=== PATIENT | female | born 1995 | race Two or more races ===

== ENCOUNTER 2017-07-17 18:56 | Emergency (ER) | payer OTHER ==
[2017-07-17 19:07] VITALS: RESP 16; TEMP 98.4
[2017-07-17 19:20] LABS: COLOR YELLOW; LEUKOCYTE ESTERASE,URINE 2+ (NEGATIVE); NITRITE,URINE NEGATIVE (NEGATIVE); PH,URINE 6.5 (5.0-7.5)
--- NOTE | 2017-07-17 19:25 | EDPHY ---
H & P Time Seen by Provider: 07/17/17 19:04 HPI/ROS: This patient reports dysuria that started today associated with urinary frequency, urgency and hematuria. She has mild low back pain as well but she attributes that to chronic low back pain from scoliosis. She notes no exacerbating factors for symptoms. Her last menstrual period was 6 weeks ago but she has irregular menses in terms of timing due to IUD. The symptoms are similar to prior UTI. She arrives here with her boyfriend by private vehicle for evaluation. ROS: No high fevers or chills though she has does have some low-grade subjective fevers. GI: No nausea vomiting : No significant vaginal discharge. 5 point ROS is otherwise negative Past Medical/Surgical History: , scoliosis, otherwise healthy Smoking Status: Never smoked Physical Exam: Physical Exam Vital signs are normal. General: No acute distress Eyes: Pupils equal and react to light. Extraocular motions are intact. Lungs: No respiratory distress. Cardiac: Brisk capillary refill is intact throughout. Abdomen: Soft, minimal suprapubic tenderness with no guarding or rebound. Back: No CVA tenderness. Scoliosis. Skin: No rash or pallor. Neuro: Alert with no sensorimotor deficits appreciated. Initial differential diagnosis: Cystitis, , interstitial cystitis Constitutional: Initial Vital Signs Temperature (C) 36.9 C 07/17/17 19:02 Heart Rate 66 07/17/17 19:02 Respiratory Rate 16 07/17/17 19:02 Blood Pressure 120/70 07/17/17 19:02 O2 Sat (%) 99 07/17/17 19:02 O2 Delivery Mode Room Air Allergies/Adverse Reactions: amoxicillin [From Augmentin] Allergy (Intermediate, Verified 07/17/17 19:01) Hives clavulanic acid [From Augmentin] Allergy (Intermediate, Verified 07/17/17 19:01) Hives Home Medications: Medication Instructions Recorded Cephalexin [Keflex (*)] 500 mg PO TID #21 cap 07/17/17 Phenazopyridine HCl [Pyridium 200 mg PO TID PRN #6 tab 07/17/17 200mg (RX)] Prozac 10 MG (*) 07/17/17 Synthroid 07/17/17 Vyvanse 07/17/17 MDM/Departure - [facility] Course/Re-evaluation: Keflex, peridium p. o.. I discussed the urinalysis result and the plan for her hemorrhagic cystitis. Discussion: No clinical evidence to suggest pyelonephritis or other complicating factors. We ruled out with a negative urine test. The patient had a mild Augmentin allergy consisting of rash. I think the she safe to start on Keflex. - Depart Disposition: Home, Routine, Self-Care Clinical Impression: Hemorrhagic cystitis Condition: Good Instructions: Cephalexin (By mouth), Urinary Tract Infection in Women (ED) Additional Instructions: Diagnosis: Hemorrhagic cystitis Plan: Drink plenty fluids Keflex antibiotic Pyridium Return for any significant worsening despite treatment plan Prescriptions: Cephalexin [Keflex (*)] 500 mg PO TID #21 cap Phenazopyridine HCl [Pyridium 200mg (RX)] 200 mg PO TID PRN #6 tab PRN Reason: dysuria Referrals: NONE *PRIMARY CARE P,. [Primary Care Provider] - As per Instructions
[2017-07-17 19:37] LABS: RBC,URINE >182 /hpf (0-3)
[2017-07-17 19:38] LABS: BACTERIA 1+ /hpf (NONE SEEN)
[2017-07-17] MEDS ORDERED: CEPHALEXIN 500 MG CAP PO ONE (19:43)
[2017-07-17] MEDS ORDERED: PHENAZOPYRIDINE HCL 200 MG TAB PO ONE (19:43)
[2017-07-17 19:59] VITALS: BP 117/70; PULSE 60; O2SAT 98
== END 2017-07-17 19:57 | disposition home or self-care (01) ==
LOC: CED 18:56
DX: N30.91 Cystitis, unspecified with hematuria (principal)
CPT/HCPCS: 81003-PO; 81015-PO; 81025-PO

== ENCOUNTER 2017-08-10 07:36 | Emergency (ER) | payer OTHER ==
--- NOTE | 2017-08-10 07:55 | EDPHY ---
H & P Time Seen by Provider: 08/10/17 07:43 HPI/ROS: HPI Blood in urine. 22-year-old female by private vehicle with and boyfriend. Patient was seen on July [address] Joseph Capone at the [facility] emergency department with complaint of hematuria and burning with urination. She was initially prescribed Keflex. Her urine culture grew out Gardnerella vaginalis. She was then discontinued on Keflex and started on Flagyl 500 mg twice daily for [address] Patrick Frazier. She reports that she felt better for a week. She reports that this morning she woke up again with gross hematuria and burning with urination. She reports her last menstrual period was about 2 months ago. She has an IUD and her menses are irregular and consistent of just spotting because of this. She denies any back pain. She has not had a fever. ROS: Constitutional: No fever, no chills. No weakness. Gastrointestinal: No abdominal pain, no vomiting, no diarrhea. Genitourinary: As above. No vaginal bleeding. Musculoskeletal: No back pain. No neck pain. No myalgias or arthralgias. Skin: No rashes. Neurological: No headache. No focal weakness or altered sensation. Past medical history: Hypothyroid, anxiety, depression, ADD, lipoma of the breast. Primary care physician is in [place] in [place]. Social history: Nonsmoker. No alcohol. Here with and boyfriend. Physical Exam: General Appearance: Alert, no distress. This patient is responding to questions appropriately and in full sentences. This patient appears well- hydrated and well-nourished. Eyes: Pupils equal and round no pallor or injection. No lid edema, erythema or injection. Gastrointestinal: Abdomen is soft and nontender, no masses, bowel sounds normal. No focal tenderness at McBurney's point. No Alexander sign. Pelvic exam: Speculum used with good light source. The cervix was well visualized. No bleeding from the cervical os which is closed. No vaginal wall lesions. No blood pooling in the vaginal vault. Neurological: Motor sensory function is grossly intact. Cranial nerves are normal. Gait is normal. Skin: Warm and dry, no rashes. Musculoskeletal: No CVA tenderness bilaterally. Extremities are symmetrical. All joints range without pain or impingement. Psychiatric: No agitation. No depression. Database: EKG: Imaging: Procedures: Emergency department course: Medical records reviewed from her emergency department visit to the [facility] on July 17. Her urine culture results were reviewed which grew out Gardnerella vaginalis. Urinalysis obtained. 8:45 a.m., patient re-evaluated. She is resting comfortably at this time. Results of her urinalysis discussed. I explained that the urine culture would be available in a day or 2. Patient tells me that every time she urinates she has burning on urination. 9:05 a.m., spoke with infectious disease specialist Dr. Dain Abbott. Case discussed in detail with him. He does not feel that this represents an infectious etiology. He is concerned about nephritic syndrome or another non infectious etiology. Blood work on the patient is pending to evaluate her renal function. 9:50 a.m., patient re-evaluated. Resting comfortably at this time. Discussed results of blood work. Patient's electrolytes and renal function is normal. She has a slight elevation of her white blood cell count. Plan at this time is to start her on ciprofloxacin 500 mg twice daily for 3 days. She is then to follow up with her primary care physician Dr. Gordillo on Monday or Monday for re- evaluation. Her urine culture should be available by Monday. I explained my concern is that this may not be an infectious etiology but an and inflammatory etiology. I discussed this plan of management with infectious disease specialist, Dr. Dain Abbott, in the emergency department. He agrees. Return to emergency department precautions were discussed. 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. She and her father understand follow-up. All of their questions were answered. The patient was discharged home in good condition. Differential Diagnosis: The differential diagnosis on this patient includes but is not limited to cystitis, menses, urinary tract infection. Pyelonephritis, nephrotic/nephritic syndrome, kidney trauma unlikely. This represents a partial list of diagnoses considered. These considerations are based on history, physical exam, past history, reassessment and diagnostic testing. Smoking Status: Never smoked Constitutional: Initial Vital Signs Temperature (C) 36.8 C 08/10/17 07:39 Heart Rate 112 H 08/10/17 07:39 Respiratory Rate 17 08/10/17 07:39 Blood Pressure 116/94 H 08/10/17 07:39 O2 Sat (%) 99 08/10/17 07:39 O2 Delivery Mode Room Air Allergies/Adverse Reactions: amoxicillin [From Augmentin] Allergy (Intermediate, Verified 07/17/17 19:01) Hives clavulanic acid [From Augmentin] Allergy (Intermediate, Verified 07/17/17 19:01) Hives Home Medications: Medication Instructions Recorded Prozac 10 MG (*) 07/17/17 Synthroid 07/17/17 Vyvanse 07/17/17 Ciprofloxacin [Cipro] 500 mg PO BID #6 tab 08/10/17 Medical Decision Making - Data Points Laboratory Results: Laboratory Results 08/10/17 09:05 08/10/17 09:05 Medications Given: Discontinued Medications Ciprofloxacin (Cipro) 500 mg PO EDNOW ONE PRN Reason: Protocol Stop: 08/10/17 09:58 Last Admin: 08/10/17 10:17 Dose: 500 mg Departure - Departure Disposition: Home, Routine, Self-Care Clinical Impression: Cystitis, Hematuria Condition: Good Instructions: Urinary Tract Infection in Women (ED), Hematuria (ED) Additional Instructions: Read and follow provided instructions. Follow-up with your primary care physician , Dr. Gordillo, within the next 2-3 days as discussed. Explain that we are concerned that this may not be an infectious source such as a bacterial infection but more caused from an inflammatory process. Dr. Gordillo can get all records and laboratory results by calling the emergency department here. Your latest urine culture results should be available by Monday at the latest. Take medication as prescribed through entire course of treatment. Return to the emergency department for worsening pain, bleeding, fever, back pain, vomiting or other serious concerns. Referrals: DARRYL GORDILLO [Other] - As per Instructions Prescriptions: Ciprofloxacin [Cipro] 500 mg PO BID #6 tab
[2017-08-10 07:59] VITALS: TEMP 98.2
[2017-08-10 08:27] LABS: COLOR RED
[2017-08-10 08:30] LABS: RBC,URINE >182 /hpf (0-3)
[2017-08-10 08:31] LABS: BACTERIA TRACE /hpf (NONE SEEN)
[2017-08-10 08:34] LABS: WBC,URINE 15-25 /hpf (0-3)
[2017-08-10 09:13] LABS: % IMMATURE GRANULYOCYTES 0.4 % (0.0-1.1); ABSOLUTE IMMATURE GRANULOCYTES 0.05 10^3/uL (0.00-0.10); ADD DIFF? NO; ADD MORPH? NO; ADD SCAN? NO; ATYPICAL LYMPHOCYTE FLAG 0 (0-99); FRAGMENT RBC FLAG 0 (0-99); HEMATOCRIT 44.5 % (38.0-47.0); LEFT SHIFT FLG 0 (0-99); LIPEMIA HEMOLYSIS FLAG 80 (0-99); MEAN CELL HEMOGLOBIN 28.9 pg (27.9-34.1); MEAN CELL HEMOGLOBIN CONCENTR. 33.7 g/dL (32.4-36.7); MEAN CELL VOLUME 85.7 fL (81.5-99.8); MEAN PLATELET VOLUME 10.1 fL (8.7-11.7); PLATELET CLUMPS FLAG 0 (0-99); PLATELET COUNT 326 10^3/uL (150-400); RED BLOOD CELL COUNT 5.19 10^6/uL (4.18-5.33); RED CELL DISTRIBUTION WIDTH 12.7 % (11.5-15.2)
[2017-08-10 09:34] LABS: ANION GAP 14 mEq/L (8-16); CARBON DIOXIDE 23 mEq/l (22-31); CHLORIDE 102 mEq/L (97-110); CREATININE 0.9 mg/dL (0.6-1.0); GLOMERULAR FILTRATION RATE > 60; GLUCOSE 70 mg/dL (70-100); POTASSIUM 4.1 mEq/L (3.5-5.2); SODIUM 139 mEq/L (134-144)
[2017-08-10] MEDS ORDERED: CIPROFLOXACIN 500 MG TAB PO ONE (09:57)
[2017-08-10 10:17] VITALS: BP 108/76; PULSE 74; RESP 18; O2SAT 96
== END 2017-08-10 10:42 | disposition home or self-care (01) ==
DX: N30.91 Cystitis, unspecified with hematuria (principal); B96.89 Other specified bacterial agents as the cause of diseases classified elsewhere

== ENCOUNTER 2018-01-27 13:13 | Emergency (ER) | payer OTHER ==
[2018-01-27 16:22] LABS: PLATELET COUNT 406 10^3/uL (150-400)
--- NOTE | 2018-01-27 16:40 | EDPHY ---
HPI/HX/ROS/PE/MDM Narrative: CHIEF COMPLAINT: Abdominal pain HISTORY OF PRESENT ILLNESS: The patient is a 22 y/o female complaining of abdominal pain. [No fever, chills, chest pain, shortness of breath, palpitations, vomiting, diarrhea, urinary complaints, headache, lightheadedness. ] REVIEW OF SYSTEMS: Aside from elements discussed in the HPI, a comprehensive 10-point review of systems was reviewed and is negative. PAST MEDICAL HISTORY: SOCIAL HISTORY: Student at , originally from [place] VITAL SIGNS: Reviewed by me GENERAL: Well-developed, well-nourished, resting comfortably in no respiratory distress. HEENT: Atraumatic. Eyes: No icterus, no injection. Mouth: moist mucous membranes. No erythema or lesions. Neck: supple with no adenopathy. LUNGS: Clear to auscultation bilaterally, no wheezes, rhonchi or rales. CARDIAC: Regular rate and rhythm, no rubs, murmurs or gallops. ABDOMEN: Soft, nontender, nondistended, bowel sounds normal. BACK: No CVA tenderness. EXTREMITIES: No trauma. No edema. Range of motion is normal throughout. NEURO: Alert and oriented, grossly nonfocal. SKIN: Warm and dry, no rash. PSYCHIATRIC: Normal mentation, no agitation. Portions of this note were transcribed by a medical economics consultant. I personally performed a history, physical exam, medical decision making, and confirmed accuracy of information the transcribed note. - Data Points Laboratory Results: Laboratory Results 01/27/18 16:10 01/27/18 01/27/18 01/27/18 16:10 16:10 16:10 WBC 6.81 10^3/uL 10^3/uL (3.80-9.50) RBC 4.81 10^6/uL 10^6/uL (4.18-5.33) Hgb 14.1 g/dL g/dL (12.6-16.3) Hct 40.7 % % (38.0-47.0) MCV 84.6 fL fL (81.5-99.8) MCH 29.3 pg pg (27.9-34.1) MCHC 34.6 g/dL g/dL (32.4-36.7) RDW 12.6 % % (11.5-15.2) Plt Count 406 10^3/uL H 10^3/uL (150-400) MPV 9.9 fL fL (8.7-11.7) Neut % (Auto) 54.0 % % (39.3-74.2) Lymph % (Auto) 34.1 % % (15.0-45.0) [place] % (Auto) 8.8 % % (4.5-13.0) Eos % (Auto) 1.6 % % (0.6-7.6) Baso % (Auto) 1.2 % % (0.3-1.7) Nucleat RBC Rel Count 0.0 % % (0.0-0.2) Absolute Neuts (auto) 3.68 10^3/uL 10^3/uL (1.70-6.50) Absolute Lymphs (auto) 2.32 10^3/uL 10^3/uL (1.00-3.00) Absolute Monos (auto) 0.60 10^3/uL 10^3/uL (0.30-0.80) Absolute Eos (auto) 0.11 10^3/uL 10^3/uL (0.03-0.40) Absolute Basos (auto) 0.08 10^3/uL 10^3/uL (0.02-0.10) Absolute Nucleated RBC 0.00 10^3/uL 10^3/uL (0-0.01) Immature Gran % 0.3 % % (0.0-1.1) Immature Gran # 0.02 10^3/uL 10^3/uL (0.00-0.10) Sodium Pending Potassium Pending Chloride Pending Carbon Dioxide Pending Anion Gap Pending BUN Pending Creatinine Pending Estimated GFR Pending Glucose Pending Calcium Pending Total Bilirubin Pending Conjugated Bilirubin Pending Unconjugated Bilirubin Pending AST Pending ALT Pending Alkaline Phosphatase Pending Total Protein Pending Albumin Pending Lipase Pending Beta HCG, Qual NEGATIVE General Time Seen by Provider: 01/27/18 16:35 Initial Vital Signs: Initial Vital Signs Temperature (C) 36.5 C 01/27/18 13:28 Heart Rate 67 01/27/18 13:28 Respiratory Rate 18 01/27/18 13:28 Blood Pressure 132/85 H 01/27/18 13:28 O2 Sat (%) 98 01/27/18 13:28 O2 Delivery Mode Room Air Allergies/Adverse Reactions: amoxicillin [From Augmentin] Allergy (Intermediate, Verified 01/27/18 13:32) Hives clavulanic acid [From Augmentin] Allergy (Intermediate, Verified 01/27/18 13:32) Hives Home Medications: Medication Instructions Recorded Prozac 10 MG (*) 07/17/17 Synthroid 07/17/17 Vyvanse 07/17/17 Ciprofloxacin [Cipro] 500 mg PO BID #6 tab 08/10/17 Departure - Departure Referrals: RAND,UNKNOWN [Other] - As per Instructions Report Scribed for: Elba Norton Report Scribed by: Dede Waldrop Date of Report: 01/27/18 Time of Report: 16:40
[2018-01-27] MEDS: NS 1,000 ML IV ONE ×2 (18:11→18:49)
[2018-01-27] MEDS: HYDROmorphONE/DILAUDID 2 MG/ML INJ IVP ONE ×2 (18:11→18:49)
[2018-01-27] MEDS: ONDANSETRON 4 MG/2 ML VIAL IVP ONE ×2 (18:12→18:49)
--- NOTE | 2018-01-27 18:22 | EDPHY ---
H & P Stated Complaint: sudden onset abd pain 0800. naseau - Personal History LMP (Females 10-55): IUD In Place Current Tetanus/Diphtheria Vaccine: Unsure Current Tetanus Diphtheria and Acellular Pertussis (TDAP): Unsure - Medical/Surgical History Hx Asthma: No Hx Chronic Respiratory Disease: No Hx Diabetes: No Hx Cardiac Disease: No Hx Renal Disease: No Hx Cirrhosis: No Hx Alcoholism: No Hx HIV/AIDS: No Hx Splenectomy or Spleen Trauma: No Other PMH: Med hx-thyroid,anxiety/depression ,add. Surg-left breast-lipoma - Social History Smoking Status: Never smoked Time Seen by Provider: 01/27/18 16:35 HPI/ROS: Chief complaint: Abdominal pain History of present illness: This is a 22-year-old female who presents to the emergency department for evaluation of abdominal pain. She reports the onset of symptoms earlier this morning. She describes a sudden onset. She has had a sharp burning sensation in the epigastric region that does wax and wane in intensity. She has had associated nausea but no vomiting. She denies other associated signs or symptoms including no diarrhea or constipation, no blood in the stools, no urinary symptoms, no abnormal vaginal discharge or bleeding, no fevers. She does states she drank some alcohol last night. She did treat discomfort this morning with ibuprofen. Review of systems: A 10 point review of systems was obtained and other than described above was negative (Juan J Anderson) - Physical Exam Exam: General Appearance: Alert, nontoxic. Eyes: Pupils equal and round no pallor or injection. ENT, Mouth: Mucous membranes moist. Respiratory: There are no retractions, lungs are clear to auscultation. Cardiovascular: Regular rate and rhythm. Gastrointestinal: Bowel sounds are normal. Abdomen is soft and nondistended. Mild epigastric pain. Mild right upper quadrant tenderness. No peritoneal signs. Neurological: Alert and oriented x4. Strength and sensation intact and symmetrical. Skin: Warm and dry, no rashes. Musculoskeletal: Neck is supple non tender. Extremities are symmetrical, full range of motion. Psychiatric: Patient is oriented X 3, there is no agitation. (Juan J Anderson) Constitutional: Initial Vital Signs Temperature (C) 36.5 C 01/27/18 13:28 Heart Rate 67 01/27/18 13:28 Respiratory Rate 18 01/27/18 13:28 Blood Pressure 132/85 H 01/27/18 13:28 O2 Sat (%) 98 01/27/18 13:28 O2 Delivery Mode Room Air Allergies/Adverse Reactions: amoxicillin [From Augmentin] Allergy (Intermediate, Verified 01/27/18 13:32) Hives clavulanic acid [From Augmentin] Allergy (Intermediate, Verified 01/27/18 13:32) Hives Home Medications: Medication Instructions Recorded Prozac 10 MG (*) 07/17/17 Synthroid 07/17/17 Vyvanse 07/17/17 Ciprofloxacin [Cipro] 500 mg PO BID #6 tab 08/10/17 Hydrocodone/APAP 5/325 [Cec[place] 1 tab PO Q6H #6 tab 01/27/18 5/325 (*)] Medical Decision Making - Diagnostics Imaging: Discussed imaging studies w/ on call Radiologist - Diagnostics Imaging Results: Imaging Impressions Abdomen Ultrasound 01/27/18 17:24 Impression: Normal right upper quadrant ultrasound. Results called and discussed with Juan J Anderson PA-C on 01/27/2018, 18:03. Abdomen CT 01/27/18 19:54 Impression: No CT findings for appendicitis. Normal CT abdomen and pelvis with IV contrast. Results called and discussed with Juan J Anderson PA-C on 01/27/2018, 20:33. ED Course/Re-evaluation: The patient was evaluated and managed by the physician's election assistant. My cosignature indicates that I reviewed the chart and I agree with the findings and plan of care as documented. I am the secondary supervising physician. ( Marie Callahan) Patient seen under the supervision of my secondary supervising physician Dr. Marie Callahan. Patient presents to the emergency department for abdominal pain. She is nontoxic. Vital signs are stable. There is mild tenderness in the epigastric and right upper quadrant. Repeat abdominal examination in the emergency room remains benign. Blood studies largely unremarkable. Right upper quadrant ultrasound unremarkable. She is symptomatically treated with some improvement in pain. Patient further underwent CT scan of the abdomen and pelvis with IV contrast which is unremarkable. Symptomatically treated with some improvement in symptoms. At this time I do not appreciate significant underlying pathology requiring further emergency department intervention or inpatient management. Patient will be discharged home. She is to follow up with her primary care doctor for recheck. Return precautions are given. Patient voiced understanding and agreement with plan. (Juan J Anderson) Differential Diagnosis: Included but not limited to reflux, gastritis, gastroenteritis, biliary tract disease, pancreatitis, colitis, kidney tract disease, an associated complications (Juan J Anderson) - Data Points Laboratory Results: Laboratory Results 01/27/18 16:10 01/27/18 16:10 01/27/18 01/27/18 01/27/18 16:40 16:10 16:10 WBC RBC Hgb Hct MCV MCH MCHC RDW Plt Count MPV Neut % (Auto) Lymph % (Auto) [place] % (Auto) Eos % (Auto) Baso % (Auto) Nucleat RBC Rel Count Absolute Neuts (auto) Absolute Lymphs (auto) Absolute Monos (auto) Absolute Eos (auto) Absolute Basos (auto) Absolute Nucleated RBC Immature Gran % Immature Gran # Sodium 143 mEq/L mEq/L (135-145) Potassium 4.2 mEq/L mEq/L (3.5-5.2) Chloride 109 mEq/L mEq/L (97-110) Carbon Dioxide 22 mEq/l mEq/l (22-31) Anion Gap 12 mEq/L mEq/L (8-16) BUN 10 mg/dL mg/dL (7-23) Creatinine 0.6 mg/dL mg/dL (0.6-1.0) Estimated GFR > 60 Glucose 80 mg/dL mg/dL (70-100) Calcium 10.0 mg/dL mg/dL (8.5-10.4) Total Bilirubin 1.3 mg/dL mg/dL (0.1-1.4) Conjugated Bilirubin 0.3 mg/dL mg/dL (0.0-0.5) Unconjugated Bilirubin 1.0 mg/dL mg/dL (0.0-1.1) AST 18 IU/L IU/L (14-46) ALT 23 IU/L IU/L (9-52) Alkaline Phosphatase 57 IU/L IU/L (38-126) Total Protein 7.6 g/dL g/dL (6.3-8.2) Albumin 4.5 g/dL g/dL (3.5-5.0) Lipase 65 IU/L IU/L (23-300) Beta HCG, Qual NEGATIVE Urine Color YELLOW Urine Appearance CLEAR Urine pH 7.0 (5.0-7.5) Ur Specific [place] 1.013 (1.002-1.030) Urine Protein NEGATIVE (NEGATIVE) Urine Ketones NEGATIVE (NEGATIVE) Urine Blood NEGATIVE (NEGATIVE) Urine Nitrate NEGATIVE (NEGATIVE) Urine Bilirubin NEGATIVE (NEGATIVE) Urine Urobilinogen NEGATIVE EU EU (0.2-1.0) Ur Leukocyte Esterase NEGATIVE (NEGATIVE) Urine RBC 1-3 /hpf /hpf (0-3) Urine WBC 1-3 /hpf /hpf (0-3) Ur Epithelial Cells TRACE /lpf /lpf (NONE-1+) Urine Bacteria TRACE /hpf H /hpf (NONE SEEN) Urine Glucose NEGATIVE (NEGATIVE) 01/27/18 16:10 WBC 6.81 10^3/uL 10^3/uL (3.80-9.50) RBC 4.81 10^6/uL 10^6/uL (4.18-5.33) Hgb 14.1 g/dL g/dL (12.6-16.3) Hct 40.7 % % (38.0-47.0) MCV 84.6 fL fL (81.5-99.8) MCH 29.3 pg pg (27.9-34.1) MCHC 34.6 g/dL g/dL (32.4-36.7) RDW 12.6 % % (11.5-15.2) Plt Count 406 10^3/uL H 10^3/uL (150-400) MPV 9.9 fL fL (8.7-11.7) Neut % (Auto) 54.0 % % (39.3-74.2) Lymph % (Auto) 34.1 % % (15.0-45.0) [place] % (Auto) 8.8 % % (4.5-13.0) Eos % (Auto) 1.6 % % (0.6-7.6) Baso % (Auto) 1.2 % % (0.3-1.7) Nucleat RBC Rel Count 0.0 % % (0.0-0.2) Absolute Neuts (auto) 3.68 10^3/uL 10^3/uL (1.70-6.50) Absolute Lymphs (auto) 2.32 10^3/uL 10^3/uL (1.00-3.00) Absolute Monos (auto) 0.60 10^3/uL 10^3/uL (0.30-0.80) Absolute Eos (auto) 0.11 10^3/uL 10^3/uL (0.03-0.40) Absolute Basos (auto) 0.08 10^3/uL 10^3/uL (0.02-0.10) Absolute Nucleated RBC 0.00 10^3/uL 10^3/uL (0-0.01) Immature Gran % 0.3 % % (0.0-1.1) Immature Gran # 0.02 10^3/uL 10^3/uL (0.00-0.10) Sodium Potassium Chloride Carbon Dioxide Anion Gap BUN Creatinine Estimated GFR Glucose Calcium Total Bilirubin Conjugated Bilirubin Unconjugated Bilirubin AST ALT Alkaline Phosphatase Total Protein Albumin Lipase Beta HCG, Qual Urine Color Urine Appearance Urine pH Ur Specific [place] Urine Protein Urine Ketones Urine Blood Urine Nitrate Urine Bilirubin Urine Urobilinogen Ur Leukocyte Esterase Urine RBC Urine WBC Ur Epithelial Cells Urine Bacteria Urine Glucose Medications Given: Discontinued Medications Al Hydroxide/Mg Hydroxide (Maalox Susp) 30 ml PO ONCE ONE Stop: 01/27/18 19:55 Last Admin: 01/27/18 20:32 Dose: 30 ml Famotidine (Pepcid) 20 mg PO EDNOW ONE Stop: 01/27/18 21:19 Last Admin: 01/27/18 21:26 Dose: 20 mg Hydromorphone HCl (Dilaudid) 0.5 mg IVP EDNOW ONE Stop: 01/27/18 17:24 Last Admin: 01/27/18 18:49 Dose: 0.5 mg Hyoscyamine Sulfate (Levsin, Hyomax-Sl) 0.25 mg PO ONCE ONE Stop: 01/27/18 19:55 Last Admin: 01/27/18 20:32 Dose: 0.25 mg Sodium Chloride (Ns) 1,000 mls @ 0 mls/hr IV EDNOW ONE; Wide Open PRN Reason: Protocol Stop: 01/27/18 17:24 Last Admin: 01/27/18 18:49 Dose: 1,000 mls Lidocaine (Lidocaine 2% Viscous) 15 ml PO ONCE ONE Stop: 01/27/18 19:55 Last Admin: 01/27/18 20:32 Dose: 15 ml Ondansetron HCl (Zofran) 4 mg IVP EDNOW ONE Stop: 01/27/18 17:24 Last Admin: 01/27/18 18:49 Dose: 4 mg Departure - Departure Disposition: Home, Routine, Self-Care Clinical Impression: Abdominal pain Qualifiers: Abdominal location: epigastric Qualified Code(s): R10.13 - Epigastric pain Condition: Good Instructions: Abdominal Pain (ED) Additional Instructions: Follow-up with your primary care doctor on Monday for recheck If symptoms worsen or new symptoms develop return to the emergency room for recheck Referrals: RAND,YAMIL [Other] - As per Instructions Donta Chapman [Doctor of Osteopathy] - As per Instructions Tanesha Feldman MD [Medical Doctor] - As per Instructions Prescriptions: Hydrocodone/APAP 5/325 [[place]ec[place] 5/325 (*)] 1 tab PO Q6H #6 tab
[2018-01-27] MEDS ORDERED: HYOSCYAMINE SULFATE 0.125 MG TAB PO ONE (19:54)
[2018-01-27] MEDS ORDERED: LIDOCAINE 2% VISCOUS 15 ML UDCUP PO ONE (19:54)
[2018-01-27] MEDS ORDERED: MAG HYDROX/AL HYDROX/SIMETH 30 ML UDCUP PO ONE (19:54)
[2018-01-27] MEDS ORDERED: IOPAMIDOL (ISOVUE-300) 100 ML BTL ONE (19:58)
[2018-01-27 20:35] VITALS: BP 111/70; PULSE 59; RESP 16; O2SAT 98
[2018-01-27] MEDS ORDERED: FAMOTIDINE 20 MG TAB PO ONE (21:18)
[2018-01-27 21:31] VITALS: TEMP 97.9
[2018-01-28] MEDS ORDERED: RANITIDINE SYRUP 15 MG/1 ML UDSYR PO ONE (09:00)
== END 2018-01-27 21:31 | disposition home or self-care (01) ==
DX: R10.13 Epigastric pain (principal); E86.9 Volume depletion, unspecified
CPT/HCPCS: 96374; J1170; J2405; Q9967